=== PATIENT | female | born 1945 | race Caucasian/White ===

== ENCOUNTER 2016-09-28 10:23 | Emergency (ER) | payer OTHER, MEDICARE ==
[~2016-09-28] VITALS: Ht 167.6 cm; Wt 93.0 kg
[~2016-09-28 10:23] MED LIST: AMLO5TAB4 PO; ASA81 PO; BENA40TA2 PO; HYG25 PO; LIP40 PO; LISI40TA4 PO; METF1000 PO; METO25TA3 PO; PARO-41 PO; THOR25 PO
[2016-09-28 10:30] VITALS: BP 185/85; PULSE 61; RESP 17; TEMP 96.8; O2SAT 96
[2016-09-28 12:00] VITALS: BP 176/80; PULSE 64; RESP 20; TEMP 97.2; O2SAT 98
[2016-09-28] MEDS ORDERED: IBUPROFEN 800 MG TABLET PO ONE (12:00)
== END 2016-09-28 12:00 | disposition home or self-care (01) ==
LOC: SED 10:23
DX: S20.20XA Contusion of thorax, unspecified, initial encounter (principal); E78.00 Pure hypercholesterolemia, unspecified; E11.9 Type 2 diabetes mellitus without complications; I10 Essential (primary) hypertension; Z86.79 Personal history of other diseases of the circulatory system; Z79.82 Long term (current) use of aspirin; V89.2XXA Person injured in unspecified motor-vehicle accident, traffic, initial encounter; Y93.89 Activity, other specified; Y92.39 Other specified sports and athletic area as the place of occurrence of the external cause; Y99.8 Other external cause status
CPT/HCPCS: 71110; 99284

== ENCOUNTER 2019-02-06 18:24 | Inpatient (IN) | payer OTHER, MEDICARE ==
[~2019-02-06] VITALS: Ht 167.6 cm; Wt 86.2 kg
[2019-02-06 18:24] VITALS: BP_SYST 158
[~2019-02-06 18:24] MED LIST changes: -AMLO5TAB4 PO; -BENA40TA2 PO; +BENA40TA8 PO; -HYG25 PO; -LISI40TA4 PO; -THOR25 PO
--- NOTE | 2019-02-06 18:34 | NUR ---
PT TRIAGED AND EKG DONE IN TRIAGE ROOM, BROUGHT IMMEDIATELY BACK TO BED #5 AND REPORT GIVEN TO SONYA. EKG GIVEN TO DR MCDONNELL
--- NOTE | 2019-02-06 18:35 | NUR ---
CARDIAC MONITORING IN PROGRESS. DR MCDONNELL AT BEDSIDE FOR EVALUATION
[2019-02-06] MEDS ORDERED: ASPIRIN 81 MG TAB.CHEW PO ONE (18:45)
[2019-02-06 19:08] LABS: BASOPHILS # (AUTO) 0.1 K/uL (0.0-0.2); BASOPHILS % (AUTO) 0.7 % (0.0-2.0); EOSINOPHILS # (AUTO) 0.2 K/uL (0.0-0.4); EOSINOPHILS % (AUTO) 1.7 % (0.0-4.0); HEMATOCRIT 47.7 % (36-48); HEMOGLOBIN 15.3 g/dL (12.0-16.0); LYMPHOCYTES # (AUTO) 4.1 K/uL (1.0-5.5); LYMPHOCYTES % (AUTO) 35.3 % (20.5-51.5); MEAN CORPUSCULAR HEMOGLOBIN 29 pg (27-31); MEAN CORPUSCULAR HGB CONC 32 % (32-36); MEAN CORPUSCULAR VOLUME 90 fL (79.0-98.0); MONOCYTES # (AUTO) 0.9 K/uL (0.0-1.0); MONOCYTES % (AUTO) 7.7 % (1.7-9.3); NEUTROPHILS # (AUTO) 6.3 K/uL (1.8-7.7); NEUTROPHILS % (AUTO) 54.6 % (40.0-70.0); PLATELET COUNT (AUTO) 135 K/uL (130-430); RED CELL DISTRIBUTION WIDTH 13.5 % (9.0-15.0); WHITE BLOOD COUNT (AUTO) 11.6 K/uL (4.8-10.8)
[2019-02-06 19:17] LABS: ANION GAP 9 (5-15); CHLORIDE 101 mmol/L (98-107); CREATININE 1.07 mg/dL (0.55-1.30); GLUCOSE 194 mg/dL (70-99); PROTHROMBIN TIME 9.9 SECS (9.5-12.5); SODIUM SERUM 136 mmol/L (136-145); UREA NITROGEN, BLOOD 25 mg/dL (8-21)
[2019-02-06 19:22] LABS: ALANINE AMINOTRANSFERASE 55 U/L (12-78); ALBUMIN 3.5 g/dL (3.4-4.8); ASPARTATE AMINOTRANSFERASE 45 U/L (10-37); TOTAL BILIRUBIN 0.5 mg/dL (0.0-1.0)
--- NOTE | 2019-02-06 19:30 | NUR ---
PT came to the ED for sudden onset of chest pain with indigestion which started this morning. Reports symptoms start when she was on a walk with her dog. Pain was 8/10 in intensity. Currently in ED, pain is 0/10. She states, "As long as I'm sitting, I do not feel any pain." Reports that she has HX HTN, hyperlipidemia, diabetes, COPD and DVT. Reports taking Xarelto. Denies n/v/d or fever. No other complaints/injuries noted. Will cont. to monitor.
--- NOTE | 2019-02-06 19:40 | NUR ---
ER MD Caldwell at bedside for medical evaluation.
[2019-02-06] MEDS ORDERED: NOR10 PO (19:46)
[2019-02-06] MEDS ORDERED: NEBI5TAB3 PO (19:46)
[2019-02-06] MEDS ORDERED: EMPA10TA PO (19:46)
[2019-02-06] MEDS ORDERED: SITA100T11 PO (19:46)
[2019-02-06] MEDS ORDERED: RIVA20TA PO (19:46)
[2019-02-06] MEDS ORDERED: VITD400 PO (19:46)
--- NOTE | 2019-02-06 19:47 | NUR ---
Medication reconciliation completed with information provided by patient. Any prior medication reconciliation on file was reviewed and corrected.
--- NOTE | 2019-02-06 21:17 | NUR ---
Pt resting comfortably in bed, no signs of acute distress. Will cont. to monitor.
--- NOTE | 2019-02-06 21:45 | NUR ---
Patient will be admitted to care of Dr. Menchaca. Admitted to Tele unit. Will go to room 135. Belongings list completed. Summary report printed. Report will be given at bedside.
--- NOTE | 2019-02-06 21:46 | NUR ---
Called [facility] for bed, charge nurse will call back.
--- NOTE | 2019-02-06 22:26 | NUR ---
Transfer to Tele via ACLS protocol. Licensed nurse present. IV present no signs or symptoms of infiltration.
--- NOTE | 2019-02-06 22:26 | NUR ---
ADMISSION NOTE Received patient from ER via galilea, received report from SHANNON BARNETT. Patient admitted with diagnosis of CHEST PAIN. Patient oriented to hospital routine, call light, toileting and safety-patient verbalized understanding.
[2019-02-06 22:27] VITALS: BP_SYST 166
[2019-02-06 23:05] VITALS: BP_SYST 173
--- NOTE | 2019-02-06 23:05 | NUR ---
ADMISSION PHYSICAL ASSESSMENT DONE. FEELS HUNGRY. WAS TOLD HEART RATE 38-45/MIN. PATIENT AWAKE ORIENTED X4. SEEN WALKING INSIDE ROOM. DENIES CHEST PAIN NOR SOB. HERE .SEEN AND EXAMINED PATIENT WITH ORDERS. BP ELEVATED POSSIBLE DUE TO ACTIVITIES AND COUGHING. MD AWARE OF BP. LEFT ARM 188/73 HR 45 ,R ARM 173/76 HR 48. BLOOD SUGAR 131MG/DL.
[2019-02-06] MEDS ORDERED: DEXTROSE 50% JECT 50 ML DISP.SYRIN IVP PRN (23:15)
[2019-02-06] MEDS ORDERED: ZOLPIDEM TARTRATE 5 MG TABLET PO PRN (23:30)
[2019-02-06] MEDS ORDERED: hydrALAZINE HCL 20 MG/ML VIAL IVP PRN (23:30)
[2019-02-06] MEDS ORDERED: NITROGLYCERIN 0.4 MG TAB.SUBL SL PRN (23:45)
--- NOTE | 2019-02-07 00:07 | NUR ---
Cardio Consultation Paged Reason for consultation: Chest pain Was consult called: Yes Person who was notified: hCeri Consulting Physician: Dr Nicole is on-call for Dr Wei Floor Layer Helper Floor Layer Helper Specialty: Cardiology Ordered By: Dr Menchaca
[2019-02-07 00:40] VITALS: BP_SYST 165
--- NOTE | 2019-02-07 01:40 | NUR ---
NOTIFIED Tonio HOLLINS ABOUT LOW HR RANGES FROM 35- 46 WHILE ASLEEP. , MD STATED TO MONITOR PT , ALSO NOTIFIED MD ABOUT THE BP .
[2019-02-07 03:11] VITALS: BP_SYST 142
--- NOTE | 2019-02-07 04:00 | NUR ---
RN ROUNDS: PT IS SLEEPING , NOT IN ANY ACUTE DISTRESS;RESPIRATION IS EVEN AND NON LABORED .
[2019-02-07 07:19] LABS: BASOPHILS % (AUTO) 0.6 % (0.0-2.0); EOSINOPHILS # (AUTO) 0.2 K/uL (0.0-0.4); EOSINOPHILS % (AUTO) 2.8 % (0.0-4.0); HEMATOCRIT 43.7 % (36-48); HEMOGLOBIN 14.3 g/dL (12.0-16.0); LYMPHOCYTES # (AUTO) 2.9 K/uL (1.0-5.5); LYMPHOCYTES % (AUTO) 38.6 % (20.5-51.5); MEAN CORPUSCULAR HEMOGLOBIN 29 pg (27-31); MEAN CORPUSCULAR HGB CONC 33 % (32-36); MEAN CORPUSCULAR VOLUME 90 fL (79.0-98.0); MONOCYTES # (AUTO) 0.7 K/uL (0.0-1.0); MONOCYTES % (AUTO) 9.8 % (1.7-9.3); NEUTROPHILS # (AUTO) 3.6 K/uL (1.8-7.7); NEUTROPHILS % (AUTO) 48.2 % (40.0-70.0); PLATELET COUNT (AUTO) 118 K/uL (130-430); RED BLOOD CELL COUNT(AUTO) 4.87 MIL/uL (4.2-6.2); RED CELL DISTRIBUTION WIDTH 13.5 % (9.0-15.0); WHITE BLOOD COUNT (AUTO) 7.5 K/uL (4.8-10.8)
[2019-02-07 07:20] LABS: ANION GAP 7 (5-15); CALCIUM 9.6 mg/dL (8.4-11.0); CHLORIDE 105 mmol/L (98-107); CREATININE 1.15 mg/dL (0.55-1.30); GLUCOSE 128 mg/dL (70-99); POTASSIUM 4.3 mmol/L (3.5-5.1); SODIUM SERUM 143 mmol/L (136-145); UREA NITROGEN, BLOOD 23 mg/dL (8-21)
--- NOTE | 2019-02-07 07:20 | NUR ---
CLOSING NOTES: PT IS COMFORTABLE ; NOT IN ANY ACUTE DISTRESS; ALL NEEDS MET ; DENIED ANY CHEST PAIN , REPORT GIVEN TO RN AT BEDSIDE .
[2019-02-07 07:35] LABS: ALANINE AMINOTRANSFERASE 41 U/L (12-78); ALBUMIN 2.9 g/dL (3.4-4.8); ASPARTATE AMINOTRANSFERASE 25 U/L (10-37); THYROID STIMULATING HORMONE 2.47 uIu/mL (0.36-3.74); TOTAL BILIRUBIN 0.6 mg/dL (0.0-1.0)
[2019-02-07 08:00] VITALS: BP_SYST 178
[2019-02-07] MEDS ORDERED: metFORMIN HCL 500 MG TABLET PO SCH (08:00)
--- NOTE | 2019-02-07 08:00 | NUR ---
Note Pt sitting up in bed eating her breakfast. No SOB/resp distress or chest pain/discomfort was noted at this time. Tele unit attached and intact at this time. IV in right hand intact and patent at this time. No needs noted at this time. Call light within reach.
[2019-02-07] MEDS ORDERED: BENAZEPRIL HCL 20 MG TABLET (LOTENSIN) PO SCH (09:00)
[2019-02-07] MEDS: amLODIPine BESYLATE 10 MG TABLET PO SCH (09:05)
[2019-02-07] MEDS: LISINOPRIL 20 MG TABLET PO SCH (09:06)
[2019-02-07] MEDS: ASPIRIN 81 MG TABLET(ECOTRIN) PO SCH (09:07)
[2019-02-07] MEDS: ATORVASTATIN 20 MG TABLET PO SCH (09:07)
[2019-02-07] MEDS: PARoxetine HCL 20 MG TABLET PO SCH (09:07)
[2019-02-07] MEDS: DOXAZOSIN MESYLATE 2 MG TABLET PO SCH ×2 (09:07→20:07)
[2019-02-07 10:00] LABS: BILIRUBIN,URINE NEGATIVE (NEGATIVE); BLOOD, URINE NEGATIVE (NEGATIVE); CLARITY/URINE CLEAR (CLEAR); COLOR,URINE YELLOW (YELLOW); GLUCOSE,URINE 3+ (NEGATIVE); KETONES,URINE NEGATIVE (NEGATIVE); LEUKOCYTE ESTERASE ,URINE NEGATIVE (NEGATIVE); NITRITE, URINE NEGATIVE (NEGATIVE); PROTEIN URINE 1+ (NEGATIVE); UROBILINOGEN,URINE 0.2 (0.2-1.0)
[2019-02-07 10:29] LABS: BACTERIA,URINE FEW /HPF (None Seen); MUCUS,URINE None Seen /LPF (None Seen); RBC,URINE 0-3 /HPF (0-3); WBC,URINE 0-3 /HPF (0-3)
--- NOTE | 2019-02-07 11:00 | NUR ---
Note Pt was seen and assessed by Dr Menchaca at bedside at 1040am, questions/concerns were answered at this time. Dr Nicole was at bedside at 11am - answered pt's cardiac questions/concerns at this time. Pt to be transferred to [facility] on Saturday02/09/19 via ambulance. No needs noted at this time. Call light within reach.
[2019-02-07] MEDS ORDERED: *LOVENOX 1MG/KG Q12H/PHARMACY XX ONE (11:15)
[2019-02-07 11:28] VITALS: BP_SYST 161
[2019-02-07] MEDS: ENOXAPARIN SODIUM 80 MG/0.8 ML SYRINGE SUBCUT SCH ×2 (11:29→22:02)
[2019-02-07] MEDS: INSULIN REGULAR, HUMAN 100 UNITS/ML, 10 ML VIAL (humuLIN R) SUBCUT PRN ×2 (11:31→20:06)
--- NOTE | 2019-02-07 12:04 | NUR ---
Discharge Planning: DCP called [facility] spoke to house carlos-Wendy Stallworth ([phone]) stated she will contact the sound effects person for Regional Sales Trainer, regarding appointment for patient angiogram. Addendum: 02/07/19 at 1256 by Ruma Dougherty DP Wendy Stallworth ([phone]) returned call to [facility], stated she spoke to sound effects person nurse, and the appointment is being addressed. Also admitting will contact [facility] to give numbers where to fax and call. Ambulance should be arrange for pick 7am day of procedure. MORENITAP to follow up Addendum: 02/07/19 at 1611 by Ruma Dougherty DP DCP followed up with admitting at [facility] ([phone]) DCP spoke to Alondra and received correct faxed number to fax pt referral. DCP faxed to [facility] Admissions ([phone]), arranged for ambulance with [facility] ([phone]) 7:00am Saturday, February.
--- NOTE | 2019-02-07 14:00 | NUR ---
Note Pt resting in bed with 2 family members at bedside for the last 2 hours. Pt had 2D echo done at bedside at 1340. No needs noted at this time.
--- NOTE | 2019-02-07 14:20 | NUR ---
Note Called lab about Troponin not drawn at 1400. Informed that they only have one Customer Support Executive and they are in ED at this time. When the woods laborer finishes with ED - they will draw pt's troponin.
[2019-02-07 15:41] VITALS: BP_SYST 131
--- NOTE | 2019-02-07 16:55 | NUR ---
Note Pt asleep at this time. Tele unit attached and no needs noted at this time. Call light within reach.
[2019-02-07] MEDS ORDERED: RIVAROXABAN 10 MG TABLET PO SCH (18:00)
[2019-02-07] MEDS ORDERED: NEBIVOLOL HCL Non-Formulary 5 MG TABLET PO SCH (18:00)
--- NOTE | 2019-02-07 18:25 | NUR ---
Note Pt sitting up in bed eating her dinner. No SOB/resp distress or chest pain/discomfort was noted at this time. Tele unit attached and intact all shift. Pt was checked on q1' and PRN all shift for needs and care. Pt was maintained with safety precautions all shift. No needs noted at this time. Call light within reach.
--- NOTE | 2019-02-07 19:20 | NUR ---
OPENING NOTE Bedside report received from dayshift nurse. Patient received AOx4, sitting up in bed, watching TV. No s/s of acute distress noted. Breathing even and unlabored. Patient denies any pain. Call light with patient, instructed to call for any assistance, patient verbalized understanding. Patient refuses to have bed alarm on, despite being educated on its purpose and benefits, will continue to encourage throughout shift. Bed is locked and at lowest position. Will continue to monitor.
[2019-02-07 20:00] VITALS: BP_SYST 128
--- NOTE | 2019-02-07 21:00 | NUR ---
ROUNDS Patient sleeping. No signs of discomfort noted. Chest rise and fall even bilaterally. Call light with patient. Will continue to monitor.
--- NOTE | 2019-02-07 22:33 | NUR ---
PAGED PAGING DR. KAUR; MANAGER MOLECULAR FOR DR. LINDA, REGARDING CRITICAL LAB VALUES, SPOKE WITH LOVE
--- NOTE | 2019-02-07 22:36 | NUR ---
CRITICAL LAB Dr. Nicole made aware of critical lab, troponin 0.406. No new orders given at this time.
--- NOTE | 2019-02-07 23:00 | NUR ---
ROUNDS Patient in bed sleeping at this time. No s/s of acute distress noted. Breathing even and unlabored. Call light with patient. Will continue to monitor.
--- NOTE | 2019-02-08 01:00 | NUR ---
ROUNDS Patient in bed asleep. No signs of discomfort. Chest rise and fall even bilaterally. Call light with patient.
[2019-02-08 01:04] VITALS: BP_SYST 142
--- NOTE | 2019-02-08 03:00 | NUR ---
ROUNDS Patient in bed sleeping at this time. No s/s of acute distress noted. Breathing even and unlabored. Call light with patient. Will continue to monitor.
--- NOTE | 2019-02-08 05:00 | NUR ---
ROUNDS Patient in bed asleep. No signs of discomfort noted. Chest rise and fall even bilaterally. Call light with patient.
--- NOTE | 2019-02-08 06:29 | NUR ---
CLOSING NOTE Patient in bed sleeping at this time. No s/s of acute distress noted. Breathing even and unlabored. IV site patent, no signs of infiltration or infection noted. Skin warm and dry to touch. No signs of hypoglycemia noted. All needs met throughout shift. Fall and safety precautions maintained throughout shift. Will continue to monitor until patient care is endorsed to oncoming dayshift nurse.
[2019-02-08 07:06] LABS: BASOPHILS % (AUTO) 0.5 % (0.0-2.0); EOSINOPHILS # (AUTO) 0.1 K/uL (0.0-0.4); EOSINOPHILS % (AUTO) 1.2 % (0.0-4.0); HEMATOCRIT 44.3 % (36-48); HEMOGLOBIN 14.3 g/dL (12.0-16.0); LYMPHOCYTES # (AUTO) 2.5 K/uL (1.0-5.5); LYMPHOCYTES % (AUTO) 27.7 % (20.5-51.5); MEAN CORPUSCULAR HEMOGLOBIN 29 pg (27-31); MEAN CORPUSCULAR HGB CONC 32 % (32-36); MEAN CORPUSCULAR VOLUME 90 fL (79.0-98.0); MONOCYTES # (AUTO) 0.7 K/uL (0.0-1.0); MONOCYTES % (AUTO) 7.5 % (1.7-9.3); NEUTROPHILS # (AUTO) 5.7 K/uL (1.8-7.7); NEUTROPHILS % (AUTO) 63.1 % (40.0-70.0); PLATELET COUNT (AUTO) 113 K/uL (130-430); RED BLOOD CELL COUNT(AUTO) 4.94 MIL/uL (4.2-6.2); RED CELL DISTRIBUTION WIDTH 13.8 % (9.0-15.0)
[2019-02-08 07:20] LABS: ANION GAP 3 (5-15); CALCIUM 9.5 mg/dL (8.4-11.0); CHLORIDE 106 mmol/L (98-107); CHOLESTEROL 140 mg/dL (<200); CREATININE 1.22 mg/dL (0.55-1.30); GLUCOSE 164 mg/dL (70-99); HDL CHOLESTEROL 51 mg/dL (>55); LDL CHOLESTEROL 73 mg/dL (<100); POTASSIUM 4.3 mmol/L (3.5-5.1); SODIUM SERUM 137 mmol/L (136-145); TRIGLYCERIDES 66 mg/dL (30-150); UREA NITROGEN, BLOOD 28 mg/dL (8-21)
[2019-02-08 08:00] VITALS: BP_SYST 145
--- NOTE | 2019-02-08 08:00 | NUR ---
RN OPENING NOTE PATIENT IS RESTING IN BED. ALERT ORIENTED X4 , PATIENT WAS ASSESSED, DENIES PAIN OR DISCOMFORT. PATIENT VITAL SIGNS ARE STABLE. PATIENT BED AT LOW POSITION AND CALL LIGHT WITHIN REACH, WILL PASS HER MED AT 0900
[2019-02-08] MEDS: ATORVASTATIN 20 MG TABLET PO SCH (08:50)
--- NOTE | 2019-02-08 08:54 | NUR ---
MORENITA PLANNING Called & spoke ute Systems Operator @ [facility], ph [phone], to verify systems testing laboratory technician tomorrow, states to call admitting. Called & spoke ute Bose in admitting, ph [phone], states everything set up for 10am procedure in Search Marketing Specialist tomorrow, pt needs to be there 2 hrs before @ 8am. States to have nurse call tomorrow morning @ 7am to give report & they will give room # or if needs to go straight to systems testing laboratory technician, # to call [phone]. Called & updated [facility] ambulance for machine operator hop picker @ 720am, pt needs to be there @ 8am. Aware needs monitoring, ambulance ph [phone]. Pt's nurse Yrn updated.
[2019-02-08] MEDS: LISINOPRIL 20 MG TABLET PO SCH (08:57)
[2019-02-08] MEDS: DOXAZOSIN MESYLATE 2 MG TABLET PO SCH ×2 (08:58→20:01)
[2019-02-08] MEDS: PARoxetine HCL 20 MG TABLET PO SCH (09:00)
[2019-02-08] MEDS: amLODIPine BESYLATE 10 MG TABLET PO SCH (09:00)
[2019-02-08] MEDS: ASPIRIN 81 MG TABLET(ECOTRIN) PO SCH (09:01)
--- NOTE | 2019-02-08 10:35 | NUR ---
RN NOTE PATIENT WAS SERVED HER BREAKFAST AND GIVEN HER MEDICATION. PATIENT WILL BE TRANSFERED TO ROOM 117 BED B TO BE ABLE TO WATCH THE TV. WILL CONTINUE TO MONITOR. [facility] SINCE PATIENT IS DUE FOR ANGIOGRAPHY POSSIBLE ANGIOPLASTY WITH STENT PLACEMENT.
[2019-02-08] MEDS: ENOXAPARIN SODIUM 80 MG/0.8 ML SYRINGE SUBCUT SCH ×2 (11:52→23:18)
[2019-02-08] MEDS: INSULIN REGULAR, HUMAN 100 UNITS/ML, 10 ML VIAL (humuLIN R) SUBCUT PRN ×2 (11:53→20:01)
[2019-02-08 12:00] VITALS: BP_SYST 148
--- NOTE | 2019-02-08 12:00 | NUR ---
RN NOTE PATIENT WAS MOVED TO ROOM 117B TO BE ABLE TO WATCH HER TV. PATIENT DENIES PAIN OR DISCOMFORT. PATIENT WAS SERVED HER LUNCH, PATIENT WAS SEEN BY DR. CASTRO THE VIDEO TECHNICIAN. WILL CONTINUE TO MONITOR.
--- NOTE | 2019-02-08 14:00 | NUR ---
RN NOTE PATIENT IS RESTING IN BED, DENIES PAIN OR DISCOMFORT. FINISHED WITH HER LUNCH, WAS EDUCATED ABOUT FALL PREVENTION WILL CONTINUE TO MONITOR.
--- NOTE | 2019-02-08 16:00 | NUR ---
RN NOTE PATIENT IS RESTING IN BED, DENIES PAIN OR DISCOMFORT.WAS ASSISTED TO THE BATHROOM WILL CONTINUE TO MONITOR.
[2019-02-08 16:29] VITALS: BP_SYST 140
--- NOTE | 2019-02-08 18:00 | NUR ---
RN CLOSING NOTE PATIENT IS RESTING IN BED. BLOOD SUGAR WAS MEASURED TO BE WITHIN NORMAL RANGE, PATIENT GOT NO COVERAGE, PATIENT THEN WAS SERVED HER DINNER. PATIENT IS ON 2 LITRE O2 BY NASAL CANULA APPROVED BY THE DRY MILL OPERATOR. PATIENT WILL BE GOING TOMORROW TO THE [facility]. PLEASE READ THE CM NOTE FOR THE TRANSFER DR. BARBER PUT THE ORDER FOR THE TRANSFER. WILL ENDORSE TO NEXT SHIFT.
--- NOTE | 2019-02-08 19:15 | NUR ---
OPENING NOTES Bedside report received from dayshift nurse. Patient received, AOx4, lying in bed, no s/s of acute distress noted. Breathing even and unlabored. Nasal canula attached properly, on 2L of oxygen. Patient denies any pain or discomfort at this time. Call light with patient, instructed to call for any assistance, patient verbalized understanding. Bed is locked and at lowest position. Will continue to monitor.
[2019-02-08 20:00] VITALS: BP_SYST 133
--- NOTE | 2019-02-08 21:00 | NUR ---
ROUNDS Patient in bed watching TV. No signs of discomfort noted. Chest rise and fall even bilaterally. Call light with patient. Will continue to monitor.
--- NOTE | 2019-02-08 23:00 | NUR ---
ROUNDS Patient in bed asleep at this time. No s/s of acute distress noted. Breathing even and unlabored. Call light with patient.
[2019-02-09 00:28] VITALS: BP_SYST 124
--- NOTE | 2019-02-09 01:00 | NUR ---
ROUNDS Patient in bed sleeping. No signs of discomfort. No SOB. Chest rise and fall even bilaterally. Call light with patient.
--- NOTE | 2019-02-09 03:00 | NUR ---
ROUNDS Patient in bed sleeping. No s/s of acute distress noted. Breathing even and unlabored. Call light with patient.
--- NOTE | 2019-02-09 05:00 | NUR ---
ROUNDS Patient in bed asleep at this time. No signs of discomfort noted. Chest rise and fall even bilaterally. Call light with patient.
--- NOTE | 2019-02-09 06:01 | NUR ---
Transportation Service called [facility] to verify ACLS transport for patient to [facility], dialed . s/w Ruma, stated that ETA for pick-up is at 07:15.
[2019-02-09] MEDS: INSULIN REGULAR, HUMAN 100 UNITS/ML, 10 ML VIAL (humuLIN R) SUBCUT PRN (06:04)
[2019-02-09 06:18] VITALS: BP_SYST 135
--- NOTE | 2019-02-09 06:37 | NUR ---
CLOSING NOTES Patient in bed, awake, AOx4, no s/s of acute distress noted. Breathing even and unlabored. Patient denies any pain. Patient prepared for transfer at this time. All needs met throughout shift. Fall and safety precautions maintained throughout shift. Will continue to monitor until patient care is endorsed to oncoming dayshift nurse.
--- NOTE | 2019-02-09 06:44 | NUR ---
CALLED [facility] Spoke with Flip from [facility] at [phone]. RN informed that patient will go to [facility] room 200B. As per Flip no nurse is ready to receive report at this time, try calling back at [phone] for report.
[2019-02-09 07:30] VITALS: BP_SYST 155
--- NOTE | 2019-02-09 07:55 | NUR ---
TRANSFERRED PT TO [facility] PT STABLE NOT IN ACUTE DISTRESS. DENIES C/O OF CHEST PAIN OR SOB AT THIS TIME. VITALS STABLE. AMBULANCE HERE TO CORPORATE TRAINER PT.REPORT GIVEN TO DORON AT [facility]. PT TRANSFERRED TO [facility] WITH AMBULANCE IN STABLE CONDITION
== END 2019-02-09 07:48 | disposition short-term general hospital (02) | DRG 282 ==
LOC: SED 18:24 → STU 21:50
PROVIDERS: ADMIT Internal Medicine; ATTEND Internal Medicine
DX: I21.4 Non-ST elevation (NSTEMI) myocardial infarction (principal); E11.9 Type 2 diabetes mellitus without complications; E78.5 Hyperlipidemia, unspecified; R00.1 Bradycardia, unspecified; I10 Essential (primary) hypertension; F32.9 Major depressive disorder, single episode, unspecified; F17.200 Nicotine dependence, unspecified, uncomplicated; I25.10 Atherosclerotic heart disease of native coronary artery without angina pectoris; J44.9 Chronic obstructive pulmonary disease, unspecified; Y93.K1 Activity, walking an animal; Z86.718 Personal history of other venous thrombosis and embolism; Z90.710 Acquired absence of both cervix and uterus
CPT/HCPCS: 36415; 71045; 80048; 80053; 80061; 81000-TC; 82962; 83880; 84443-TC; 84484; 85025; 85610-TC; 85730-TC; 93005; 93306; 99285; G0378; J0360; J1650; J1815

== ENCOUNTER 2019-09-30 23:18 | Inpatient (IN) | payer OTHER, MEDICARE ==
[~2019-09-30] VITALS: Ht 167.6 cm; Wt 96.6 kg
[~2019-09-30 23:18] MED LIST changes: -ASA81 PO; +EMPA10TA PO; -METO25TA3 PO; +NEBI5TAB3 PO; +NOR10 PO; +RIVA20TA PO; +SITA100T11 PO; +VITD400 PO
[2019-09-30 23:41] VITALS: BP_SYST 147
--- NOTE | 2019-10-01 00:21 | NUR ---
Placed in room 08 . Placed on monitoring tech, blood pressure machine and pulse oximeter. To gown for exam. Side rails up.
--- NOTE | 2019-10-01 00:24 | NUR ---
Pt AAOx4 ambulated into ED c/o nausea/vomiting/diarrhea x 5-6 hrs prior to arrival. Pt also c/o of swelling to L lower leg. Pt has hx of DVT in L leg. Pt unsure if she has double dosed on her RX lasic. Denies chest pain/SOB/abd pain. No other injuries/complaints per pt/noted. Will contineu to monitor.
--- NOTE | 2019-10-01 00:40 | NUR ---
ER Dr. Butcher at bedside examining patient.
[2019-10-01] MEDS ORDERED: NACL 0.9% 1,000 ML IV ONE ×2 (00:48→03:08)
[2019-10-01] MEDS ORDERED: PANTOPRAZOLE SODIUM 40 MG/VIAL (PROTONIX) IVP ONE ×2 (01:00→11:00)
[2019-10-01] MEDS ORDERED: ONDANSETRON HCL 4 MG/2 ML VIAL IVP ONE (01:00)
[2019-10-01 01:25] LABS: BASOPHILS # (AUTO) 0.1 K/uL (0.0-0.2); BASOPHILS % (AUTO) 0.6 % (0.0-2.0); EOSINOPHILS % (AUTO) 0.3 % (0.0-4.0); HEMATOCRIT 37.2 % (36-48); HEMOGLOBIN 11.8 g/dL (12.0-16.0); LYMPHOCYTES # (AUTO) 1.6 K/uL (1.0-5.5); LYMPHOCYTES % (AUTO) 11.4 % (20.5-51.5); MEAN CORPUSCULAR HEMOGLOBIN 26 pg (27-31); MEAN CORPUSCULAR HGB CONC 32 % (32-36); MEAN CORPUSCULAR VOLUME 83 fL (79.0-98.0); MONOCYTES # (AUTO) 0.4 K/uL (0.0-1.0); MONOCYTES % (AUTO) 2.7 % (1.7-9.3); NEUTROPHILS # (AUTO) 11.7 K/uL (1.8-7.7); PLATELET COUNT (AUTO) 157 K/uL (130-430); RED BLOOD CELL COUNT(AUTO) 4.51 MIL/uL (4.2-6.2); RED CELL DISTRIBUTION WIDTH 15.9 % (9.0-15.0); WHITE BLOOD COUNT (AUTO) 13.7 K/uL (4.8-10.8)
[2019-10-01 01:31] LABS: ANION GAP 8 (5-15); CALCIUM 9.7 mg/dL (8.4-11.0); CHLORIDE 98 mmol/L (98-107); CREATININE 1.33 mg/dL (0.55-1.30); GLUCOSE 366 mg/dL (70-99); POTASSIUM 3.9 mmol/L (3.5-5.1); SODIUM SERUM 134 mmol/L (136-145); UREA NITROGEN, BLOOD 33 mg/dL (8-21)
[2019-10-01 01:35] LABS: PROTHROMBIN TIME 9.9 SECS (9.5-12.5)
[2019-10-01 01:37] LABS: ALANINE AMINOTRANSFERASE 35 U/L (12-78); ALBUMIN 3.4 g/dL (3.4-4.8); ASPARTATE AMINOTRANSFERASE 33 U/L (10-37); LIPASE 122 U/L (73-393); TOTAL BILIRUBIN 0.6 mg/dL (0.0-1.0)
--- NOTE | 2019-10-01 01:50 | NUR ---
Ophelia, pt daughter, would like to be notified of any change in pt condition.
--- NOTE | 2019-10-01 02:30 | NUR ---
Pt resting comfortably in bed with no signs of distress.
--- NOTE | 2019-10-01 03:30 | NUR ---
Pt signed CTA conset form
--- NOTE | 2019-10-01 03:45 | NUR ---
Pt taken to radiology via gurney in stable condition
[2019-10-01] MEDS ORDERED: IOHEXOL 350 mgI/mL, 150 ML INFUS..BTL IV ONE (04:05)
--- NOTE | 2019-10-01 04:15 | NUR ---
Pt returned from radiology in stable condition.
--- NOTE | 2019-10-01 05:28 | NUR ---
Pt resting comfortably in bed with no signs of distress.
[2019-10-01] MEDS ORDERED: LR 1,000 ML IV ONE (06:00)
--- NOTE | 2019-10-01 06:04 | NUR ---
Per [facility], bed not ready at this time. Will call back in 15 min.
--- NOTE | 2019-10-01 06:20 | NUR ---
Per [facility], bed 103A not ready to receive pt. Will call back in 15 min for status.
--- NOTE | 2019-10-01 07:03 | NUR ---
Patient will be admitted to [facility]. Admitted to Telemetry unit. Will go to room 103A. Complete and up to date summary report printed. SBAR report to be given at bedside with opportunity for questions.
--- NOTE | 2019-10-01 07:03 | NUR ---
Note alvaro in EDM - 10/01/19 at 0705 by [email or web address] Patient will be admitted to care of 07. Admitted to Telemetry unit. Will go to room 103A. Complete and up to date summary report printed. SBAR report to be given at bedside with opportunity for questions.
--- NOTE | 2019-10-01 07:05 | NUR ---
ADMISSION NOTE Received patient from ER via gurney. Patient admitted with diagnosis of Altered level Consiousness. Patient is awake, alert, oriented X4. Patient oriented to hospital room, call light, toileting, pain management and safety-teach back done. Patient informed their room number is 103A. Personal belongings checked and Belongings List documented. Call light within reach.
[2019-10-01 08:25] VITALS: BP_SYST 123
--- NOTE | 2019-10-01 08:25 | NUR ---
Routine Patient resting comfortably in bed with no complaint of pain at this time. Checked blood sugar: 223 mg/dl - will cover per sliding scale. Patient stable at this time. Addendum: 10/01/19 at 1106 by Maribel Farmer RN [phone]: Patient covered per sliding scale.
[2019-10-01 08:35] VITALS: BP_SYST 123
[2019-10-01] MEDS: INSULIN REGULAR, HUMAN 100 UNITS/ML, 10 ML VIAL (humuLIN R) SUBCUT PRN ×3 (08:53→21:10)
[2019-10-01] MEDS ORDERED: amLODIPine BESYLATE 10 MG TABLET PO ONE (10:00)
[2019-10-01] MEDS ORDERED: BENAZEPRIL HCL 20 MG TABLET (LOTENSIN) PO SCH (10:00)
[2019-10-01] MEDS ORDERED: ATORVASTATIN 20 MG TABLET PO ONE (10:00)
--- NOTE | 2019-10-01 10:30 | NUR ---
Routine Patient resting in bed with eyes closed. No distress noted. Patient stable.
[2019-10-01] MEDS: PARoxetine HCL 20 MG TABLET PO SCH (11:00)
[2019-10-01] MEDS ORDERED: PAROXETINE HCL 10 MG TABLET PO ONE (11:00)
[2019-10-01] MEDS: LISINOPRIL 20 MG TABLET PO SCH (11:00)
[2019-10-01 12:00] VITALS: BP_SYST 156
[2019-10-01] MEDS ORDERED: ENOXAPARIN SODIUM 40 MG/0.4 ML SYRINGE SUBCUT ONE (12:00)
--- NOTE | 2019-10-01 12:00 | NUR ---
Routine Checked blood sugar:L 178 mg/dl - will cover per sliding scale. Patient stable. Addendum: 10/01/19 at 1301 by Maribel Farmer RN Covered per sliding scale.
--- NOTE | 2019-10-01 13:10 | NUR ---
Neuro consult called: for Dr. Garcia, regarding ALOC, ordered by Dr. Menchaca, spoke with Holli at exchange.
--- NOTE | 2019-10-01 13:13 | NUR ---
Cardiac consult called: for Dr. Wei, regarding CAD, ordered by Dr. Menchaca, spoke with
--- NOTE | 2019-10-01 13:18 | NUR ---
ID consult called: for Dr. Scanlon, regarding sepsis, ordered by Dr. Menchaca, spoke with Jennifer.
[2019-10-01] MEDS: cefTRIAXone 1 GM in D5W 50 ML IV SCH (14:09)
[2019-10-01] MEDS: PARoxetine HCL 20 MG TABLET PO ONE ×2 (14:09→14:13)
[2019-10-01] MEDS: metroNIDAZOLE 250 MG TABLET PO SCH ×2 (14:09→21:00)
[2019-10-01] MEDS: LISINOPRIL 20 MG TABLET PO ONE ×2 (14:09→14:14)
--- NOTE | 2019-10-01 14:15 | NUR ---
Routine Patient resting quietly in bed with no complaint of any pain. Scheduled meds given per order. Patient stable at this time.
--- NOTE | 2019-10-01 14:47 | NUR ---
Corrosion Engineer/Discharge Planning Patient was referred to Corrosion Engineer by Dr Menchaca as patient lives alone. Also conducted a Discharge Plan Assessment. URBAN GARDENING SPECIALIST met with patient and granddaughter, Miranda, at bedside. Patient lives alone in a trailer home with her dog. Her granddaughter lives nearby and provides support. Patient does not want to go to a SNF. They have looked at assisted living, but it's not affordable and patient will not leave her dog. Patient gets confused with her medications. They would like some help with ideas on medication monitoring. Recommend Home Health Safety Eval and be sure granddaughter is there for visit. [facility] (p [phone] f [phone]) was in the home February and March 2019. Patient was happy with the service and would like to use them again. Phoned Madeleine at [facility] who verified dates of service and will await a referral. Patient also could use more help at home, but has limited financial resources. Granddaughter is a student and works two jobs. She is willing to provide support for patient in the home and even stay for a short time. Patient's daughter provides some financial support and has been paying for patient's secondary insurance. Discussed [employer] application and [employer]. Granddaughter could possibly get paid to assist patient and leave one of her jobs. They are interested and it seems patient would qualify. Called and emailed Kei with [employer] for [employer]. Provided granddaughter information on and contact numbers for [employer] and [facility]. At patient's request, emailed Admitting to add granddaughter to face sheet. SS/CM/DCP will remain available.
[2019-10-01 16:00] VITALS: BP_SYST 160
--- NOTE | 2019-10-01 17:58 | NUR ---
Routine Patient resting comfortably in bed, ready to eat dinner. Checked blood sugar: 133 mg/dl - no coverage required. Scheduled po med given as well. Patient stable throughout shift.
[2019-10-01] MEDS ORDERED: NEBIVOLOL HCL Non-Formulary 5 MG TABLET PO SCH (18:00)
[2019-10-01] MEDS ORDERED: metFORMIN HCL 500 MG TABLET PO SCH (18:00)
[2019-10-01] MEDS: METOPROLOL TARTRATE 25 MG TABLET PO SCH (18:01)
[2019-10-01 19:50] VITALS: BP_SYST 141
--- NOTE | 2019-10-01 19:50 | NUR ---
Opening notes Pt AAOx4, VSS, afebrile. No s/s distress noted. O2 sat 94% on room air. IV saline lock L. AC 20G clear and patent. L. hand IV not patent, dc'd with catheter tip intact, no bleeding noted. Encouraged pt to call for assistance. Pt verbalized understanding. Call light within reach. Safety maintained. Bed low, locked, siderails up x2. To monitor.
[2019-10-01] MEDS: LACTOBACILLUS RHAMNOSUS GG 1 CAP CAPSULE PO SCH (21:00)
--- NOTE | 2019-10-02 00:30 | NUR ---
Rounds Pt asleep, no s/s distress noted. Call light within reach. Safety maintained. To monitor.
[2019-10-02 01:44] VITALS: BP_SYST 131
--- NOTE | 2019-10-02 03:20 | NUR ---
Rounds Pt asleep, no s/s distress noted. Respirations even and unlabored. Call light within reach. Bed low, locked, siderails up x2. To monitor.
--- NOTE | 2019-10-02 05:10 | NUR ---
Urine sample collected and sent to lab.
[2019-10-02 05:12] LABS: BILIRUBIN,URINE NEGATIVE (NEGATIVE); BLOOD, URINE TRACE (NEGATIVE); CLARITY/URINE CLEAR (CLEAR); COLOR,URINE YELLOW (YELLOW); GLUCOSE,URINE NEGATIVE (NEGATIVE); KETONES,URINE NEGATIVE (NEGATIVE); LEUKOCYTE ESTERASE ,URINE 1+ (NEGATIVE); NITRITE, URINE NEGATIVE (NEGATIVE); PROTEIN URINE 1+ (NEGATIVE); UROBILINOGEN,URINE 0.2 (0.2-1.0)
[2019-10-02 05:18] LABS: BACTERIA,URINE FEW /HPF (None Seen)
[2019-10-02] MEDS: METOPROLOL TARTRATE 25 MG TABLET PO SCH ×2 (06:00→17:27)
[2019-10-02] MEDS: metroNIDAZOLE 250 MG TABLET PO SCH ×2 (06:22→14:45)
--- NOTE | 2019-10-02 06:23 | NUR ---
Closing notes Pt asleep, easily arousable. No s/s distress noted. BS checked 179, 2 units Regular insulin administered per protocol. IV saline lock L. AC 20G clear and patent. Call light within reach. Safety maintained. To endorse to AM nurse.
[2019-10-02] MEDS: INSULIN REGULAR, HUMAN 100 UNITS/ML, 10 ML VIAL (humuLIN R) SUBCUT PRN ×4 (06:26→21:18)
[2019-10-02 06:55] LABS: BASOPHILS # (AUTO) 0.1 K/uL (0.0-0.2); BASOPHILS % (AUTO) 0.8 % (0.0-2.0); EOSINOPHILS # (AUTO) 0.2 K/uL (0.0-0.4); EOSINOPHILS % (AUTO) 2.7 % (0.0-4.0); HEMATOCRIT 35.7 % (36-48); HEMOGLOBIN 11.2 g/dL (12.0-16.0); LYMPHOCYTES # (AUTO) 3.2 K/uL (1.0-5.5); LYMPHOCYTES % (AUTO) 42.4 % (20.5-51.5); MEAN CORPUSCULAR HEMOGLOBIN 26 pg (27-31); MEAN CORPUSCULAR HGB CONC 32 % (32-36); MEAN CORPUSCULAR VOLUME 83 fL (79.0-98.0); MONOCYTES # (AUTO) 0.6 K/uL (0.0-1.0); MONOCYTES % (AUTO) 8.5 % (1.7-9.3); NEUTROPHILS # (AUTO) 3.5 K/uL (1.8-7.7); NEUTROPHILS % (AUTO) 45.6 % (40.0-70.0); PLATELET COUNT (AUTO) 153 K/uL (130-430); RED BLOOD CELL COUNT(AUTO) 4.29 MIL/uL (4.2-6.2); WHITE BLOOD COUNT (AUTO) 7.6 K/uL (4.8-10.8)
[2019-10-02 07:07] LABS: ALANINE AMINOTRANSFERASE 31 U/L (12-78); ALBUMIN 2.7 g/dL (3.4-4.8); ANION GAP 5 (5-15); ASPARTATE AMINOTRANSFERASE 38 U/L (10-37); CALCIUM 8.9 mg/dL (8.4-11.0); CHLORIDE 102 mmol/L (98-107); CREATININE 1.42 mg/dL (0.55-1.30); GLUCOSE 171 mg/dL (70-99); POTASSIUM 4.2 mmol/L (3.5-5.1); SODIUM SERUM 137 mmol/L (136-145); TOTAL BILIRUBIN 0.7 mg/dL (0.0-1.0); UREA NITROGEN, BLOOD 31 mg/dL (8-21)
--- NOTE | 2019-10-02 07:16 | NUR ---
Initial note: Patient is sleeping comfortable , no sign of distress, RR=16, HR=46 shown Sinus bradycardia on the campus monitor. Call light with in reach, bed alarm on, 2 side rails up, bed in low position.
[2019-10-02 07:40] VITALS: BP_SYST 135
--- NOTE | 2019-10-02 08:00 | NUR ---
Desat: Patient is awake, no sign of distress, but Sat O2=84-84%, RR=16, ME=80. Apply Oxygen 2 L/M via NC. Will continue monitor.
--- NOTE | 2019-10-02 08:40 | NUR ---
Cardio round: Dr. Mixon makes round in the room. Inform him that patient was just awake and Sat O2 =84-86%. Put her on 2 L/M via NC then Sat is up to 92-94%. He states to get her up walking and try to remove Oxygen later.
[2019-10-02] MEDS: ATORVASTATIN 20 MG TABLET PO SCH (08:52)
[2019-10-02] MEDS: PANTOPRAZOLE SODIUM 40 MG/VIAL (PROTONIX) IVP SCH (08:52)
[2019-10-02] MEDS: LISINOPRIL 20 MG TABLET PO SCH (08:53)
[2019-10-02] MEDS: PARoxetine HCL 20 MG TABLET PO SCH (08:53)
[2019-10-02] MEDS: CHOLECALCIFEROL (VITAMIN D3) 2,000 UNIT TABLET PO SCH (08:54)
[2019-10-02] MEDS: LACTOBACILLUS RHAMNOSUS GG 1 CAP CAPSULE PO SCH ×2 (08:54→21:11)
[2019-10-02] MEDS: amLODIPine BESYLATE 10 MG TABLET PO SCH (08:55)
--- NOTE | 2019-10-02 10:31 | NUR ---
PT with O2 sat monitoring: A Physical therapist is in the room for evaluation. Before start walking with room air Sat=88%, during walking 86%, after walking 1 round on the hallway 89%, then after walking up stair and walk back from PT department to the room Sat O2 =92%. Patient denies any SOB , nor tired. Keep patient on Room air and will monitor with in 1 hour.
[2019-10-02 11:30] VITALS: BP_SYST 171
[2019-10-02] MEDS: cefTRIAXone 1 GM in D5W 50 ML IV SCH (12:54)
--- NOTE | 2019-10-02 13:17 | NUR ---
Re-assess Sat O2: Patient ambulates on the hallway with 1 stop. Sat O2 after ambulate 89%. Put her back on Oxygen 2 L/M via NC. Will continue monitor.
--- NOTE | 2019-10-02 14:16 | NUR ---
DC Planning: per dr. Menchaca, to dc pt home with home health, PT , DME's : Nebulizer and home o2. The set up is pending ABG's result and signed respiratory form.(Left on pt's chart for dr. Menchaca to fill in)-- SHANNON Preciado made aware.
--- NOTE | 2019-10-02 14:46 | NUR ---
CONSULTATION PAGED/CALLED Reason for Consultation: [] DESATURATION Person Who was Notified: [] SIM Consulting Physician: [] DR George MORGAN Hi Lo Driver Specialty: [] PULMO Ordering Physician: [] DR BARBER
--- NOTE | 2019-10-02 15:11 | NUR ---
Dietitian Recommendations * Recommend continuing CCHO, mechanical soft diet LP, RD Please refer to Nutrition Assessment for details. Addendum: 10/02/19 at [address] Amended: Links added.
--- NOTE | 2019-10-02 15:30 | NUR ---
JAMES ROUND: MAKES ROUND AND SHE IS AWARE OF ABG RESULT.
--- NOTE | 2019-10-02 16:00 | NUR ---
Discharge Planning: DCP faxed pt referral to [facility] (f [phone] p [phone]) for PT and disease management, [facility] (f [phone] p [phone]) for home O2.
[2019-10-02 16:53] VITALS: BP_SYST 168
--- NOTE | 2019-10-02 19:04 | NUR ---
CLOSING NOTE: PATIENT IS STABLE, ON OXYGEN 2 L/M VIA NC, NO SIGN OF DISTRESS. AMBULATING WELL WITH STEADY GAIT. TOLERATING ORAL DIET WELL, NO N/V OR DIARRHEA.
[2019-10-02 19:50] VITALS: BP_SYST 154
--- NOTE | 2019-10-02 19:50 | NUR ---
Opening notes Pt AAOx4, VSS, afebrile. No s/s resp distress noted. No c/o N/V or diarrhea. IV saline locked L. AC clear and patent. Call light within reach. Safety maintianed. To monitor.
[2019-10-02] MEDS ORDERED: ENOXAPARIN SODIUM 40 MG/0.4 ML SYRINGE SUBCUT SCH (21:00)
--- NOTE | 2019-10-02 21:18 | NUR ---
Blood sugar Pt BS checked 215, 4 units Reg insulin given per ss protocol. To monitor.
[2019-10-02] MEDS ORDERED: metroNIDAZOLE 500 mg/NS 200 ML IV ONE (22:09)
[2019-10-02] MEDS: metroNIDAZOLE 500 mg/NS 100 ML IV SCH (22:19)
[2019-10-03 01:00] VITALS: BP_SYST 126
--- NOTE | 2019-10-03 01:00 | NUR ---
Rounds/Refused O2 Pt asleep, easily arousable. VSS, O2 sat 91% on Room air, pt refused Oxygen at this time. IV saline lock L. AC clear and patent. Call light remains within reach. Bed low, locked, siderails up x2. To monitor.
--- NOTE | 2019-10-03 06:30 | NUR ---
Closing notes Pt alert, awake, no s/s distress noted. Pt refused oxygen O2 sat 91% on room air. BS checked 137. IV saline lock left AC 20 clear and patent. Blood pressure elevated 174/74, Lopressor 25mg Po scheduled given. To endorse to AM nurse. Safety maintained. Call light within reach.
[2019-10-03] MEDS: METOPROLOL TARTRATE 25 MG TABLET PO SCH (06:44)
[2019-10-03 06:46] LABS: BASOPHILS # (AUTO) 0.1 K/uL (0.0-0.2); BASOPHILS % (AUTO) 0.7 % (0.0-2.0); EOSINOPHILS # (AUTO) 0.3 K/uL (0.0-0.4); EOSINOPHILS % (AUTO) 3.8 % (0.0-4.0); HEMATOCRIT 37.7 % (36-48); HEMOGLOBIN 11.8 g/dL (12.0-16.0); LYMPHOCYTES # (AUTO) 3.4 K/uL (1.0-5.5); LYMPHOCYTES % (AUTO) 39.3 % (20.5-51.5); MEAN CORPUSCULAR HEMOGLOBIN 26 pg (27-31); MEAN CORPUSCULAR HGB CONC 31 % (32-36); MEAN CORPUSCULAR VOLUME 83 fL (79.0-98.0); MONOCYTES # (AUTO) 0.7 K/uL (0.0-1.0); MONOCYTES % (AUTO) 7.9 % (1.7-9.3); NEUTROPHILS # (AUTO) 4.2 K/uL (1.8-7.7); NEUTROPHILS % (AUTO) 48.3 % (40.0-70.0); PLATELET COUNT (AUTO) 152 K/uL (130-430); RED BLOOD CELL COUNT(AUTO) 4.55 MIL/uL (4.2-6.2); RED CELL DISTRIBUTION WIDTH 16.1 % (9.0-15.0); WHITE BLOOD COUNT (AUTO) 8.8 K/uL (4.8-10.8)
[2019-10-03 07:13] LABS: ANION GAP 7 (5-15); CALCIUM 9.3 mg/dL (8.4-11.0); CHLORIDE 103 mmol/L (98-107); CREATININE 1.16 mg/dL (0.55-1.30); GLUCOSE 131 mg/dL (70-99); POTASSIUM 4.2 mmol/L (3.5-5.1); SODIUM SERUM 141 mmol/L (136-145); UREA NITROGEN, BLOOD 25 mg/dL (8-21)
[2019-10-03 08:00] VITALS: BP_SYST 157
[2019-10-03] MEDS: ATORVASTATIN 20 MG TABLET PO SCH (08:41)
[2019-10-03] MEDS: PARoxetine HCL 20 MG TABLET PO SCH (08:42)
[2019-10-03] MEDS: LISINOPRIL 20 MG TABLET PO SCH (08:43)
[2019-10-03] MEDS: CHOLECALCIFEROL (VITAMIN D3) 2,000 UNIT TABLET PO SCH (08:44)
[2019-10-03] MEDS: LACTOBACILLUS RHAMNOSUS GG 1 CAP CAPSULE PO SCH (08:44)
[2019-10-03] MEDS: amLODIPine BESYLATE 10 MG TABLET PO SCH (08:44)
[2019-10-03] MEDS: metroNIDAZOLE 500 mg/NS 100 ML IV SCH (09:08)
[2019-10-03 09:28] VITALS: BP_SYST 157
[2019-10-03] MEDS ORDERED: BUDE6HFA INH (11:14)
[2019-10-03] MEDS ORDERED: GLUCOSE 15 GM GEL (in 37.5 GM TUBE) PO PRN (11:30)
[2019-10-03] MEDS ORDERED: D5W 1,000 ML IV PRN (11:30)
[2019-10-03] MEDS ORDERED: DEXTROSE 50%-WATER 50 ML DISP.SYRIN IVP PRN (11:30)
[2019-10-03] MEDS: PANTOPRAZOLE SODIUM 40 MG/VIAL (PROTONIX) IVP SCH (11:47)
[2019-10-03] MEDS: cefTRIAXone 1 GM in D5W 50 ML IV SCH (11:48)
[2019-10-03 12:07] VITALS: BP_SYST 159
[2019-10-03] MEDS: INSULIN REGULAR, HUMAN 100 UNITS/ML, 10 ML VIAL (humuLIN R) SUBCUT PRN (12:33)
[2019-10-03 14:34] VITALS: BP_SYST 159
--- NOTE | 2019-10-03 15:49 | NUR ---
Patient d/c home with home health. Per family, care being set up with [facility]. Patient discharged to private vehicle with no acute distress noted. Patient left ambulatory, accompanied by daughter. Patient left with all belongs to include printed discharge paperwork. Patient and daughter given opportunity to ask questions and voice concerns, none reported. Patient educated on new and continuing medications. Again, patient and daughter given opportunity to ask questions and voice concerns, none reported. Patient states she will follow up with her sole filler regarding symbicort Rx. IV and telemetry removed without complication, patient tolerated well.
--- NOTE | 2019-10-08 16:33 | NUR ---
Discharge Follow Up Phone Call Phoned patient, . Patient stated she was doing better and was very happy with the [facility] and [facility]. She stated she postponed her follow up appointments as she was not ready to go out yet. Patient then stated her daughter was calling and put me on hold and then the line disconnected. Return call went to voicemail. Left a message. Noted in BAR note that Penelope has called granddaughter regarding the [employer] application and left a voicemail. Phoned Granddaughter, , but no answer and no voicemail.
== END 2019-10-03 15:50 | disposition home health service (06) | DRG 871 ==
LOC: SED 23:18 → STU 10-01 05:50
PROVIDERS: ADMIT Internal Medicine; ATTEND Internal Medicine
DX: A41.9 Sepsis, unspecified organism (principal); J96.01 Acute respiratory failure with hypoxia; G93.41 Metabolic encephalopathy; N12 Tubulo-interstitial nephritis, not specified as acute or chronic; I48.20 Chronic atrial fibrillation, unspecified; K52.9 Noninfective gastroenteritis and colitis, unspecified; E11.22 Type 2 diabetes mellitus with diabetic chronic kidney disease; E66.9 Obesity, unspecified; E78.5 Hyperlipidemia, unspecified; I12.9 Hypertensive chronic kidney disease with stage 1 through stage 4 chronic kidney disease, or unspecified chronic kidney disease; I25.10 Atherosclerotic heart disease of native coronary artery without angina pectoris; J44.9 Chronic obstructive pulmonary disease, unspecified; N18.9 Chronic kidney disease, unspecified; I48.0 Paroxysmal atrial fibrillation; Z86.718 Personal history of other venous thrombosis and embolism; Z87.891 Personal history of nicotine dependence; Z90.710 Acquired absence of both cervix and uterus; Z95.1 Presence of aortocoronary bypass graft; Z95.5 Presence of coronary angioplasty implant and graft; Z79.899 Other long term (current) drug therapy; Z68.34 Body mass index [BMI] 34.0-34.9, adult
CPT/HCPCS: 36415; 36600; 71275; 80048; 80053; 81000-TC; 82803-TC; 82962; 83605; 83690-TC; 85025; 85379; 85610-TC; 85730-TC; 87040-TC; 87086; 93005; 93971; 96361; 96374; 96375; 99285; C9113; G0378; J0696; J1650; J1815; J2405; J3490; J7030; J7060; Q9967